=== PATIENT | female | born 1965 | race Caucasian/White ===

== ENCOUNTER → 2016-04-12 | Outpatient (CLI) | payer OTHER ==
[~2016-04-12] MED LIST: DIPH25 PO; DOXY100C PO; HYDR-3965 PO; IBUP-1681 PO; PRED5 PO; TOFA11TA PO; [UNRECOGNIZED DRUG - OTHER] PO
[2016-04-12 14:55] VITALS: BP 149/74
== END | disposition home or self-care (01) ==
LOC: HBOWC 14:06
PROVIDERS: ATTEND Emergency Medicine
DX: I87.2 Venous insufficiency (chronic) (peripheral) (principal); L97.822 Non-pressure chronic ulcer of other part of left lower leg with fat layer exposed; L88 Pyoderma gangrenosum; I10 Essential (primary) hypertension; I89.0 Lymphedema, not elsewhere classified; E66.9 Obesity, unspecified; M72.6 Necrotizing fasciitis; M06.9 Rheumatoid arthritis, unspecified
CPT/HCPCS: 97597

== ENCOUNTER → 2016-04-26 | Outpatient (CLI) | payer OTHER ==
[2016-04-26 14:20] VITALS: BP 152/71
== END | disposition home or self-care (01) ==
LOC: HBOWC 14:27
PROVIDERS: ATTEND Emergency Medicine
DX: L97.822 Non-pressure chronic ulcer of other part of left lower leg with fat layer exposed (principal); I89.0 Lymphedema, not elsewhere classified; I10 Essential (primary) hypertension; M72.6 Necrotizing fasciitis; E66.9 Obesity, unspecified; L88 Pyoderma gangrenosum; M06.9 Rheumatoid arthritis, unspecified; I87.2 Venous insufficiency (chronic) (peripheral); I73.9 Peripheral vascular disease, unspecified
CPT/HCPCS: 11042; 87070; 87205; 88305

== ENCOUNTER → 2016-05-01 | Outpatient (CLI) | payer OTHER ==
[2016-05-01 10:12] VITALS: BP 146/82
== END | disposition home or self-care (01) ==
LOC: HBOWC 09:01
PROVIDERS: ATTEND Emergency Medicine
DX: I87.2 Venous insufficiency (chronic) (peripheral) (principal); L97.822 Non-pressure chronic ulcer of other part of left lower leg with fat layer exposed; M06.9 Rheumatoid arthritis, unspecified; E66.9 Obesity, unspecified; I10 Essential (primary) hypertension; I73.9 Peripheral vascular disease, unspecified; I89.0 Lymphedema, not elsewhere classified
CPT/HCPCS: 87070; 87205; G0463; 87147

== ENCOUNTER → 2016-05-10 | Outpatient (CLI) | payer OTHER ==
[2016-05-10 14:26] VITALS: BP 145/85
== END | disposition home or self-care (01) ==
LOC: HBOWC 14:00
PROVIDERS: ATTEND Emergency Medicine
DX: L97.821 Non-pressure chronic ulcer of other part of left lower leg limited to breakdown of skin (principal); I10 Essential (primary) hypertension; I89.0 Lymphedema, not elsewhere classified; E66.9 Obesity, unspecified; I73.9 Peripheral vascular disease, unspecified; M06.9 Rheumatoid arthritis, unspecified; M72.6 Necrotizing fasciitis; L88 Pyoderma gangrenosum
CPT/HCPCS: 97597

== ENCOUNTER → 2016-05-24 | Outpatient (CLI) | payer OTHER ==
[2016-05-24 14:59] VITALS: BP 152/70
== END | disposition home or self-care (01) ==
LOC: HBOWC 14:19
PROVIDERS: ATTEND Emergency Medicine
DX: I87.2 Venous insufficiency (chronic) (peripheral) (principal); L97.821 Non-pressure chronic ulcer of other part of left lower leg limited to breakdown of skin; L89.899 Pressure ulcer of other site, unspecified stage; I10 Essential (primary) hypertension; E66.9 Obesity, unspecified; I89.0 Lymphedema, not elsewhere classified; M06.9 Rheumatoid arthritis, unspecified; L88 Pyoderma gangrenosum; M72.6 Necrotizing fasciitis
CPT/HCPCS: 97597

== ENCOUNTER → 2016-06-07 | Outpatient (CLI) | payer OTHER ==
[~2016-06-07] MED LIST changes: -DOXY100C PO
[2016-06-07 15:08] VITALS: BP 144/85
== END | disposition home or self-care (01) ==
LOC: HBOWC 14:06
PROVIDERS: ATTEND Emergency Medicine
DX: I87.2 Venous insufficiency (chronic) (peripheral) (principal); L97.822 Non-pressure chronic ulcer of other part of left lower leg with fat layer exposed; I10 Essential (primary) hypertension; I89.0 Lymphedema, not elsewhere classified; E66.9 Obesity, unspecified; I73.9 Peripheral vascular disease, unspecified; M72.6 Necrotizing fasciitis; M06.9 Rheumatoid arthritis, unspecified; L88 Pyoderma gangrenosum
CPT/HCPCS: 97597

== ENCOUNTER → 2016-06-21 | Outpatient (CLI) | payer OTHER ==
[2016-06-21 13:40] VITALS: BP 141/57
== END | disposition home or self-care (01) ==
LOC: HBOWC 13:10
PROVIDERS: ATTEND Emergency Medicine Undersea and Hyperbaric Medicine
DX: I87.2 Venous insufficiency (chronic) (peripheral) (principal); L97.821 Non-pressure chronic ulcer of other part of left lower leg limited to breakdown of skin; I10 Essential (primary) hypertension; I89.0 Lymphedema, not elsewhere classified; L88 Pyoderma gangrenosum; E66.9 Obesity, unspecified; M72.6 Necrotizing fasciitis; M06.80 Other specified rheumatoid arthritis, unspecified site
CPT/HCPCS: 97597

== ENCOUNTER → 2016-07-05 | Outpatient (CLI) | payer OTHER ==
[2016-07-05 14:20] VITALS: BP 139/64
== END | disposition home or self-care (01) ==
LOC: HBOWC 14:11
PROVIDERS: ATTEND Emergency Medicine
DX: I87.2 Venous insufficiency (chronic) (peripheral) (principal); L97.821 Non-pressure chronic ulcer of other part of left lower leg limited to breakdown of skin; L97.521 Non-pressure chronic ulcer of other part of left foot limited to breakdown of skin; I10 Essential (primary) hypertension; I89.0 Lymphedema, not elsewhere classified; M72.6 Necrotizing fasciitis; I73.9 Peripheral vascular disease, unspecified; E66.9 Obesity, unspecified; L88 Pyoderma gangrenosum; M06.9 Rheumatoid arthritis, unspecified
CPT/HCPCS: 97597

== ENCOUNTER → 2016-07-19 | Outpatient (CLI) | payer OTHER ==
[~2016-07-19] MED LIST changes: +ACETIC ACID 0.25% 1000 ML IRRIGATION SOLUTION IRRIG ONE; +CHLORHEXIDINE GLUCONATE 4% 118 ML TOPICAL LIQUID TP ONE; +DOXY100C PO
[2016-07-19 14:38] VITALS: BP 141/61
== END | disposition home or self-care (01) ==
LOC: HBOWC 14:00
PROVIDERS: ATTEND Emergency Medicine
DX: L97.821 Non-pressure chronic ulcer of other part of left lower leg limited to breakdown of skin (principal); L97.521 Non-pressure chronic ulcer of other part of left foot limited to breakdown of skin; I87.2 Venous insufficiency (chronic) (peripheral); I10 Essential (primary) hypertension; I89.0 Lymphedema, not elsewhere classified; E66.9 Obesity, unspecified; L88 Pyoderma gangrenosum; M06.9 Rheumatoid arthritis, unspecified; M72.6 Necrotizing fasciitis
CPT/HCPCS: 87070; 87147; 87205; 97597

== ENCOUNTER → 2016-08-02 | Outpatient (CLI) | payer OTHER ==
[~2016-08-02] MED LIST changes: -ACETIC ACID 0.25% 1000 ML IRRIGATION SOLUTION IRRIG ONE; -CHLORHEXIDINE GLUCONATE 4% 118 ML TOPICAL LIQUID TP ONE
[2016-08-02 14:20] VITALS: BP 145/69
== END | disposition home or self-care (01) ==
LOC: HBOWC 13:56
PROVIDERS: ATTEND Emergency Medicine
DX: L97.822 Non-pressure chronic ulcer of other part of left lower leg with fat layer exposed (principal); I10 Essential (primary) hypertension; I89.0 Lymphedema, not elsewhere classified; M72.6 Necrotizing fasciitis; E66.9 Obesity, unspecified; L88 Pyoderma gangrenosum; M06.9 Rheumatoid arthritis, unspecified; I87.2 Venous insufficiency (chronic) (peripheral)
CPT/HCPCS: 97597

== ENCOUNTER → 2016-08-16 | Outpatient (CLI) | payer OTHER ==
[2016-08-16 15:21] VITALS: BP 146/69
== END | disposition home or self-care (01) ==
LOC: HBOWC 13:51
PROVIDERS: ATTEND Emergency Medicine
DX: I87.2 Venous insufficiency (chronic) (peripheral) (principal); L97.821 Non-pressure chronic ulcer of other part of left lower leg limited to breakdown of skin; I89.0 Lymphedema, not elsewhere classified; M72.6 Necrotizing fasciitis; E66.9 Obesity, unspecified; L88 Pyoderma gangrenosum; M06.9 Rheumatoid arthritis, unspecified; I73.9 Peripheral vascular disease, unspecified
CPT/HCPCS: 97597

== ENCOUNTER → 2016-08-30 | Outpatient (CLI) | payer OTHER ==
[2016-08-30 14:47] VITALS: BP 129/57
== END | disposition home or self-care (01) ==
LOC: HBOWC 13:51
PROVIDERS: ATTEND Emergency Medicine
DX: L97.821 Non-pressure chronic ulcer of other part of left lower leg limited to breakdown of skin (principal); I89.0 Lymphedema, not elsewhere classified; I87.2 Venous insufficiency (chronic) (peripheral); M72.6 Necrotizing fasciitis; M06.9 Rheumatoid arthritis, unspecified; E66.9 Obesity, unspecified; L88 Pyoderma gangrenosum
CPT/HCPCS: 97597

== ENCOUNTER → 2016-09-13 | Outpatient (CLI) | payer OTHER ==
[~2016-09-13] MED LIST changes: +CIPR-278 PO
[2016-09-13 14:25] VITALS: BP 141/72
== END | disposition home or self-care (01) ==
LOC: HBOWC 14:04
PROVIDERS: ATTEND Emergency Medicine
DX: I87.2 Venous insufficiency (chronic) (peripheral) (principal); L97.821 Non-pressure chronic ulcer of other part of left lower leg limited to breakdown of skin; L88 Pyoderma gangrenosum; I89.0 Lymphedema, not elsewhere classified; I73.9 Peripheral vascular disease, unspecified; E66.9 Obesity, unspecified; M06.9 Rheumatoid arthritis, unspecified; M72.6 Necrotizing fasciitis; I10 Essential (primary) hypertension
CPT/HCPCS: 87070; 87205; 97597

== ENCOUNTER → 2016-09-23 | Outpatient (CLI) | payer OTHER ==
[~2016-09-23] MED LIST changes: +ASCO500 PO; +CARV12 PO; +CEPH500 PO; +CHOL200016 PO; +FURO80 PO; +HYDR200T4 PO; +LEFL10TA15 PO; +MULT-71 PO; +PANT40TA25 PO; +PRED20 PO; +VITA100024 PO; +VITA400T9 PO; +ZINC220 PO
[2016-09-23 15:00] VITALS: BP 140/77
== END | disposition home or self-care (01) ==
LOC: HBOWC 14:10
PROVIDERS: ATTEND Emergency Medicine
DX: I87.2 Venous insufficiency (chronic) (peripheral) (principal); L97.822 Non-pressure chronic ulcer of other part of left lower leg with fat layer exposed; I10 Essential (primary) hypertension; I89.0 Lymphedema, not elsewhere classified; M72.6 Necrotizing fasciitis; E66.9 Obesity, unspecified; I73.9 Peripheral vascular disease, unspecified; L88 Pyoderma gangrenosum; M06.9 Rheumatoid arthritis, unspecified
CPT/HCPCS: 97597

== ENCOUNTER → 2016-10-10 | Outpatient (CLI) | payer OTHER ==
[~2016-10-10] MED LIST changes: -ASCO500 PO; -CARV12 PO; -CEPH500 PO; -CHOL200016 PO; -DOXY100C PO; -FURO80 PO; -HYDR200T4 PO; -LEFL10TA15 PO; -MULT-71 PO; -PANT40TA25 PO; -PRED20 PO; -VITA100024 PO; -VITA400T9 PO; -ZINC220 PO
[2016-10-10 10:04] VITALS: BP 147/70
== END | disposition home or self-care (01) ==
LOC: HBOWC 09:49
PROVIDERS: ATTEND Emergency Medicine
DX: I87.2 Venous insufficiency (chronic) (peripheral) (principal); L97.822 Non-pressure chronic ulcer of other part of left lower leg with fat layer exposed; E66.9 Obesity, unspecified; I89.0 Lymphedema, not elsewhere classified; L88 Pyoderma gangrenosum; M06.9 Rheumatoid arthritis, unspecified; I10 Essential (primary) hypertension; I73.9 Peripheral vascular disease, unspecified
CPT/HCPCS: 87070; 87205; 97597

== ENCOUNTER → 2016-10-15 | Outpatient (CLI) | payer OTHER ==
[2016-10-15 09:17] VITALS: BP 138/82
== END | disposition home or self-care (01) ==
LOC: HBOWC 08:39
PROVIDERS: ATTEND Emergency Medicine
DX: I87.2 Venous insufficiency (chronic) (peripheral) (principal); L97.822 Non-pressure chronic ulcer of other part of left lower leg with fat layer exposed; I10 Essential (primary) hypertension; I89.0 Lymphedema, not elsewhere classified; M72.6 Necrotizing fasciitis; E66.9 Obesity, unspecified; I73.9 Peripheral vascular disease, unspecified; L88 Pyoderma gangrenosum; M06.9 Rheumatoid arthritis, unspecified

== ENCOUNTER → 2016-10-25 | Outpatient (CLI) | payer OTHER ==
[2016-10-25 14:26] VITALS: BP 129/59
== END | disposition home or self-care (01) ==
LOC: HBOWC 13:39
PROVIDERS: ATTEND Emergency Medicine
DX: I87.2 Venous insufficiency (chronic) (peripheral) (principal); L97.822 Non-pressure chronic ulcer of other part of left lower leg with fat layer exposed; I89.0 Lymphedema, not elsewhere classified; M72.6 Necrotizing fasciitis; E66.9 Obesity, unspecified; I73.9 Peripheral vascular disease, unspecified; L88 Pyoderma gangrenosum; M06.9 Rheumatoid arthritis, unspecified; I10 Essential (primary) hypertension
CPT/HCPCS: 97597

== ENCOUNTER → 2016-11-08 | Outpatient (CLI) | payer OTHER ==
[2016-11-08 14:22] VITALS: BP 147/71
== END | disposition home or self-care (01) ==
LOC: HBOWC 14:05
PROVIDERS: ATTEND Emergency Medicine
DX: L97.822 Non-pressure chronic ulcer of other part of left lower leg with fat layer exposed (principal); L88 Pyoderma gangrenosum; I87.8 Other specified disorders of veins; I89.0 Lymphedema, not elsewhere classified; I10 Essential (primary) hypertension; E66.9 Obesity, unspecified; I73.9 Peripheral vascular disease, unspecified; M06.9 Rheumatoid arthritis, unspecified
CPT/HCPCS: 87070; 87205; 97597

== ENCOUNTER → 2016-11-19 | Outpatient (CLI) | payer OTHER ==
[2016-11-19 15:04] VITALS: BP 147/73
== END | disposition home or self-care (01) ==
LOC: HBOWC 14:11
PROVIDERS: ATTEND Emergency Medicine Undersea and Hyperbaric Medicine
DX: I87.2 Venous insufficiency (chronic) (peripheral) (principal); L97.821 Non-pressure chronic ulcer of other part of left lower leg limited to breakdown of skin; B96.5 Pseudomonas (aeruginosa) (mallei) (pseudomallei) as the cause of diseases classified elsewhere; I89.0 Lymphedema, not elsewhere classified; E66.9 Obesity, unspecified; L88 Pyoderma gangrenosum; M72.6 Necrotizing fasciitis; M35.1 Other overlap syndromes; M06.9 Rheumatoid arthritis, unspecified
CPT/HCPCS: 97597

== ENCOUNTER → 2016-11-29 | Outpatient (CLI) | payer OTHER ==
[~2016-11-29] MED LIST changes: -IBUP-1681 PO; +IBUP-2354 PO
[2016-11-29 08:27] VITALS: BP 157/77
== END | disposition home or self-care (01) ==
LOC: HBOWC 07:39
PROVIDERS: ATTEND Emergency Medicine
DX: S81.802D Unspecified open wound, left lower leg, subsequent encounter (principal); I87.2 Venous insufficiency (chronic) (peripheral); I10 Essential (primary) hypertension; I89.0 Lymphedema, not elsewhere classified; E66.9 Obesity, unspecified; L88 Pyoderma gangrenosum; M72.6 Necrotizing fasciitis; M06.9 Rheumatoid arthritis, unspecified; B96.5 Pseudomonas (aeruginosa) (mallei) (pseudomallei) as the cause of diseases classified elsewhere; I73.9 Peripheral vascular disease, unspecified; Z68.1 Body mass index [BMI] 19.9 or less, adult; X58.XXXD Exposure to other specified factors, subsequent encounter
CPT/HCPCS: 11042

== ENCOUNTER → 2016-12-06 | Outpatient (CLI) | payer OTHER ==
[~2016-12-06] MED LIST changes: -CIPR-278 PO
[2016-12-06 09:39] VITALS: BP 148/78
== END | disposition home or self-care (01) ==
LOC: HBOWC 08:50
PROVIDERS: ATTEND Emergency Medicine
DX: S81.802D Unspecified open wound, left lower leg, subsequent encounter (principal); L88 Pyoderma gangrenosum; I87.2 Venous insufficiency (chronic) (peripheral); E66.9 Obesity, unspecified; I89.0 Lymphedema, not elsewhere classified; M72.6 Necrotizing fasciitis; M06.9 Rheumatoid arthritis, unspecified; I10 Essential (primary) hypertension; X58.XXXD Exposure to other specified factors, subsequent encounter
CPT/HCPCS: 11042

== ENCOUNTER → 2016-12-13 | Outpatient (CLI) | payer OTHER ==
[~2016-12-13] MED LIST changes: +CIP250 PO; +CIPR-278 PO; +CIPR500S4 PO; +LIDOCAINE HCL 2% 5 ML JELLY TP ONE
[2016-12-13 10:00] VITALS: BP 149/77
== END | disposition home or self-care (01) ==
LOC: HBOWC 10:12
PROVIDERS: ATTEND Emergency Medicine
DX: S81.802D Unspecified open wound, left lower leg, subsequent encounter (principal); I87.2 Venous insufficiency (chronic) (peripheral); I10 Essential (primary) hypertension; E66.9 Obesity, unspecified; I89.0 Lymphedema, not elsewhere classified; M06.9 Rheumatoid arthritis, unspecified; I73.9 Peripheral vascular disease, unspecified; B96.5 Pseudomonas (aeruginosa) (mallei) (pseudomallei) as the cause of diseases classified elsewhere; L88 Pyoderma gangrenosum; Z68.1 Body mass index [BMI] 19.9 or less, adult; X58.XXXD Exposure to other specified factors, subsequent encounter
CPT/HCPCS: 11042

== ENCOUNTER → 2016-12-27 | Outpatient (CLI) | payer OTHER ==
[~2016-12-27] MED LIST changes: -LIDOCAINE HCL 2% 5 ML JELLY TP ONE
[2016-12-27 14:30] VITALS: BP 173/73
== END | disposition home or self-care (01) ==
LOC: HBOWC 14:07
PROVIDERS: ATTEND Nurse Practitioner Adult Health
DX: S81.802D Unspecified open wound, left lower leg, subsequent encounter (principal); I87.2 Venous insufficiency (chronic) (peripheral); I10 Essential (primary) hypertension; E66.9 Obesity, unspecified; Z68.1 Body mass index [BMI] 19.9 or less, adult; I89.0 Lymphedema, not elsewhere classified; I73.9 Peripheral vascular disease, unspecified; L88 Pyoderma gangrenosum; M06.9 Rheumatoid arthritis, unspecified; X58.XXXD Exposure to other specified factors, subsequent encounter

== ENCOUNTER → 2017-01-07 | Outpatient (CLI) | payer OTHER ==
[2017-01-07 15:05] VITALS: BP 144/74
== END | disposition home or self-care (01) ==
LOC: HBOWC 14:04
PROVIDERS: ATTEND Emergency Medicine
DX: S81.802D Unspecified open wound, left lower leg, subsequent encounter (principal); E66.9 Obesity, unspecified; I87.2 Venous insufficiency (chronic) (peripheral); L73.2 Hidradenitis suppurativa; I10 Essential (primary) hypertension; I89.0 Lymphedema, not elsewhere classified; I73.9 Peripheral vascular disease, unspecified; M06.9 Rheumatoid arthritis, unspecified; M72.6 Necrotizing fasciitis; L88 Pyoderma gangrenosum; Z68.1 Body mass index [BMI] 19.9 or less, adult; X58.XXXD Exposure to other specified factors, subsequent encounter
CPT/HCPCS: 11042

== ENCOUNTER → 2017-01-20 | Outpatient (CLI) | payer OTHER ==
[2017-01-20 08:32] VITALS: BP 155/81
== END | disposition home or self-care (01) ==
LOC: HBOWC 07:59
PROVIDERS: ATTEND Nurse Practitioner Adult Health
DX: S81.802D Unspecified open wound, left lower leg, subsequent encounter (principal); I87.2 Venous insufficiency (chronic) (peripheral); I89.0 Lymphedema, not elsewhere classified; I73.9 Peripheral vascular disease, unspecified; L88 Pyoderma gangrenosum; L73.2 Hidradenitis suppurativa; M06.9 Rheumatoid arthritis, unspecified; I10 Essential (primary) hypertension; E66.9 Obesity, unspecified; Z68.1 Body mass index [BMI] 19.9 or less, adult

== ENCOUNTER → 2017-02-03 | Outpatient (CLI) | payer OTHER ==
[~2017-02-03] MED LIST changes: +LIDOCAINE HCL 4% 50 ML SOLUTION TP ONE
[2017-02-03 11:10] VITALS: BP 156/78
== END | disposition home or self-care (01) ==
LOC: HBOWC 10:33
PROVIDERS: ATTEND Surgery Plastic and Reconstructive Surgery
DX: S81.802D Unspecified open wound, left lower leg, subsequent encounter (principal); L73.2 Hidradenitis suppurativa; L88 Pyoderma gangrenosum; I87.2 Venous insufficiency (chronic) (peripheral); I89.0 Lymphedema, not elsewhere classified; I10 Essential (primary) hypertension; I73.9 Peripheral vascular disease, unspecified; M06.9 Rheumatoid arthritis, unspecified; E66.9 Obesity, unspecified; Z68.1 Body mass index [BMI] 19.9 or less, adult; X58.XXXD Exposure to other specified factors, subsequent encounter

== ENCOUNTER → 2017-02-10 | Outpatient (CLI) | payer OTHER ==
[~2017-02-10] MED LIST changes: -CIPR-278 PO; -DIPH25 PO; +LIDOCAINE HCL 2% 5 ML JELLY TP ONE; -LIDOCAINE HCL 4% 50 ML SOLUTION TP ONE
[2017-02-10 08:33] VITALS: BP 152/73
== END | disposition home or self-care (01) ==
LOC: HBOWC 07:39
PROVIDERS: ATTEND Surgery Plastic and Reconstructive Surgery
DX: S81.802D Unspecified open wound, left lower leg, subsequent encounter (principal); I87.2 Venous insufficiency (chronic) (peripheral); E66.9 Obesity, unspecified; I10 Essential (primary) hypertension; L73.2 Hidradenitis suppurativa; I89.0 Lymphedema, not elsewhere classified; I73.9 Peripheral vascular disease, unspecified; L88 Pyoderma gangrenosum; M06.9 Rheumatoid arthritis, unspecified; M72.6 Necrotizing fasciitis; Z68.1 Body mass index [BMI] 19.9 or less, adult; X58.XXXD Exposure to other specified factors, subsequent encounter
CPT/HCPCS: 11043

== ENCOUNTER → 2017-02-17 | Outpatient (CLI) | payer OTHER ==
[~2017-02-17] MED LIST changes: -LIDOCAINE HCL 2% 5 ML JELLY TP ONE
[2017-02-17 08:11] VITALS: BP 144/74
== END | disposition home or self-care (01) ==
LOC: HBOWC 07:32
PROVIDERS: ATTEND Surgery Plastic and Reconstructive Surgery
DX: S81.802D Unspecified open wound, left lower leg, subsequent encounter (principal); L73.2 Hidradenitis suppurativa; I87.2 Venous insufficiency (chronic) (peripheral); I10 Essential (primary) hypertension; I89.0 Lymphedema, not elsewhere classified; M72.6 Necrotizing fasciitis; I73.9 Peripheral vascular disease, unspecified; M06.9 Rheumatoid arthritis, unspecified; E66.9 Obesity, unspecified; Z68.1 Body mass index [BMI] 19.9 or less, adult; X58.XXXD Exposure to other specified factors, subsequent encounter
CPT/HCPCS: 11042; 11043; 87070; 87205

== ENCOUNTER → 2017-02-24 | Outpatient (CLI) | payer OTHER ==
[~2017-02-24] MED LIST changes: +LIDOCAINE HCL 4% 50 ML SOLUTION ONE
[2017-02-24 08:18] VITALS: BP 157/68
== END | disposition home or self-care (01) ==
LOC: HBOWC 07:29
PROVIDERS: ATTEND Surgery Plastic and Reconstructive Surgery
DX: S81.802D Unspecified open wound, left lower leg, subsequent encounter (principal); I87.2 Venous insufficiency (chronic) (peripheral); E66.9 Obesity, unspecified; I89.0 Lymphedema, not elsewhere classified; M72.6 Necrotizing fasciitis; I73.9 Peripheral vascular disease, unspecified; L88 Pyoderma gangrenosum; M06.9 Rheumatoid arthritis, unspecified; I10 Essential (primary) hypertension; Z68.1 Body mass index [BMI] 19.9 or less, adult; X58.XXXD Exposure to other specified factors, subsequent encounter

== ENCOUNTER → 2017-03-03 | Outpatient (CLI) | payer OTHER ==
[~2017-03-03] MED LIST changes: -CIPR500S4 PO; -LIDOCAINE HCL 4% 50 ML SOLUTION ONE; +LIDOCAINE HCL 4% 50 ML SOLUTION TP ONE
[2017-03-03 08:21] VITALS: BP 141/67
== END | disposition home or self-care (01) ==
LOC: HBOWC 07:31
PROVIDERS: ATTEND Surgery Plastic and Reconstructive Surgery
DX: S81.802D Unspecified open wound, left lower leg, subsequent encounter (principal); I87.2 Venous insufficiency (chronic) (peripheral); E66.9 Obesity, unspecified; I10 Essential (primary) hypertension; I89.0 Lymphedema, not elsewhere classified; M72.6 Necrotizing fasciitis; I73.9 Peripheral vascular disease, unspecified; M06.9 Rheumatoid arthritis, unspecified; Z68.1 Body mass index [BMI] 19.9 or less, adult; X58.XXXD Exposure to other specified factors, subsequent encounter
CPT/HCPCS: 11043

== ENCOUNTER → 2017-03-24 | Outpatient (CLI) | payer OTHER ==
[~2017-03-24] MED LIST changes: -CIP250 PO; -LIDOCAINE HCL 4% 50 ML SOLUTION TP ONE
[2017-03-24 08:00] VITALS: BP 145/65
== END | disposition home or self-care (01) ==
LOC: HBOWC 07:39
PROVIDERS: ATTEND Surgery Plastic and Reconstructive Surgery
DX: S81.802D Unspecified open wound, left lower leg, subsequent encounter (principal); I87.2 Venous insufficiency (chronic) (peripheral); E66.9 Obesity, unspecified; I10 Essential (primary) hypertension; I89.0 Lymphedema, not elsewhere classified; M72.6 Necrotizing fasciitis; I73.9 Peripheral vascular disease, unspecified; M06.9 Rheumatoid arthritis, unspecified; L88 Pyoderma gangrenosum; Z68.1 Body mass index [BMI] 19.9 or less, adult; X58.XXXD Exposure to other specified factors, subsequent encounter
CPT/HCPCS: 11043

== ENCOUNTER → 2017-04-14 | Outpatient (CLI) | payer OTHER ==
[2017-04-14 08:00] VITALS: BP 162/73
== END | disposition home or self-care (01) ==
LOC: HBOWC 07:43
PROVIDERS: ATTEND Surgery Plastic and Reconstructive Surgery
DX: S81.802D Unspecified open wound, left lower leg, subsequent encounter (principal); I10 Essential (primary) hypertension; I89.0 Lymphedema, not elsewhere classified; E66.9 Obesity, unspecified; M06.9 Rheumatoid arthritis, unspecified; I87.2 Venous insufficiency (chronic) (peripheral); I73.9 Peripheral vascular disease, unspecified; Z68.1 Body mass index [BMI] 19.9 or less, adult; X58.XXXD Exposure to other specified factors, subsequent encounter

== ENCOUNTER 2021-04-03 05:17 | Day surgery (SDC) | payer OTHER ==
[2021-04-02 13:00] LABS: COVID AG,FIA SOURCE NASOPHARYNGEAL
[~2021-04-03] VITALS: Ht 162.6 cm; Wt 100.0 kg
[~2021-04-03 05:17] MED LIST changes: -HYDR-3965 PO; -IBUP-2354 PO; +PRED-409 PO; -PRED5 PO; +RINGERS SOLUTION,LACTATED 1,000 ML IV ONE; +RINGERS SOLUTION,LACTATED 500 ML IV ONE
[2021-04-03] MEDS ORDERED: TETRACAINE HCL/PF 0.5% 4 ML OPHTHALMIC SOLUTION OD SCH (05:30)
[2021-04-03] MEDS ORDERED: RINGERS SOLUTION,LACTATED 500 ML IV ONE (05:31)
[2021-04-03] MEDS ORDERED: MOXIFLOXACIN HCL 0.5% 3 ML OPHTHALMIC SOLUTION ONE (05:36)
[2021-04-03] MEDS ORDERED: KETOROLAC TROMETHAMINE 0.5% 5 ML OPHTHALMIC SOLUTION ONE (05:36)
[2021-04-03] MEDS ORDERED: CYCLOPENTOLATE HCL 1% 2 ML OPHTHALMIC SOLUTION ONE (05:37)
[2021-04-03] MEDS ORDERED: PHENYLEPHRINE HCL 2.5% 2 ML OPHTHALMIC SOLUTION ONE (05:37)
[2021-04-03] MEDS ORDERED: TROPICAMIDE 1% 2 ML OPHTHALMIC SOLUTION ONE (05:37)
[2021-04-03] MEDS ORDERED: TETRACAINE HCL/PF 0.5% 4 ML OPHTHALMIC SOLUTION ONE (05:38)
[2021-04-03] MEDS: CYCLOPENTOLATE HCL 1% 2 ML OPHTHALMIC SOLUTION OD SCH ×3 (05:45→06:06)
[2021-04-03] MEDS: TROPICAMIDE 1% 2 ML OPHTHALMIC SOLUTION OD SCH ×3 (05:45→06:06)
[2021-04-03] MEDS: PHENYLEPHRINE HCL 2.5% 2 ML OPHTHALMIC SOLUTION OD SCH ×3 (05:45→06:06)
[2021-04-03] MEDS: MOXIFLOXACIN HCL 0.5% 3 ML OPHTHALMIC SOLUTION OD SCH ×3 (05:45→06:06)
[2021-04-03] MEDS: KETOROLAC TROMETHAMINE 0.5% 5 ML OPHTHALMIC SOLUTION OD SCH ×3 (05:45→06:06)
[2021-04-03] MEDS ORDERED: MIDAZOLAM HCL 2 MG/2 ML VIAL IVP ONE (12:00)
[2021-04-03] MEDS ORDERED: FentaNYL CITRATE PF 100 MCG/2 ML VIAL IVP ONE (12:00)
[2021-04-03] MEDS ORDERED: NEOMYCIN/POLYMYXIN B/DEXAMETH 3.5 GM OPHTHALMIC OINTMENT ONE (19:26)
[2021-04-03] MEDS ORDERED: BALANCED SALT 15 ML OPHTHALMIC IRRIG.SOLN ONE (19:26)
[2021-04-03] MEDS ORDERED: HYALURONATE SOD 8.5MG/0.85ML 10 MG/ML SYRINGE IO ONE (19:26)
[2021-04-03] MEDS ORDERED: EPINEPHrine 1:1,000 [1 MG/ML] AMP ONE (19:26)
[2021-04-03] MEDS ORDERED: POVIDONE-IODINE 10% 15 ML SOLUTION UD ONE (19:26)
== END 2021-04-03 07:30 | disposition home or self-care (01) ==
LOC: SURGERY 05:17
PROVIDERS: ATTEND Ophthalmology
DX: H25.11 Age-related nuclear cataract, right eye (principal); Z88.0 Allergy status to penicillin; Z88.8 Allergy status to other drugs, medicaments and biological substances; Z88.2 Allergy status to sulfonamides; Z79.899 Other long term (current) drug therapy; Z98.890 Other specified postprocedural states; M06.9 Rheumatoid arthritis, unspecified
CPT/HCPCS: 66984; 87426; 93005; C9803; J0171; J2250; J3010; J7120; V2632

== ENCOUNTER 2021-05-01 05:57 | Day surgery (SDC) | payer OTHER ==
[2021-04-30 11:57] LABS: COVID AG,FIA SOURCE NASAL SWAB
[~2021-05-01] VITALS: Ht 170.2 cm; Wt 97.3 kg
[~2021-05-01 05:57] MED LIST changes: +CYCLOPENTOLATE HCL 1% 2 ML OPHTHALMIC SOLUTION ONE; +KETOROLAC TROMETHAMINE 0.5% 5 ML OPHTHALMIC SOLUTION ONE; +MOXIFLOXACIN HCL 0.5% 3 ML OPHTHALMIC SOLUTION ONE; +PHENYLEPHRINE HCL 2.5% 2 ML OPHTHALMIC SOLUTION ONE; -PRED-409 PO; +PRED-549 PO; -RINGERS SOLUTION,LACTATED 1,000 ML IV ONE; -RINGERS SOLUTION,LACTATED 500 ML IV ONE; +TETRACAINE HCL/PF 0.5% 4 ML OPHTHALMIC SOLUTION ONE; +TROPICAMIDE 1% 2 ML OPHTHALMIC SOLUTION ONE
[2021-05-01] MEDS ORDERED: RINGERS SOLUTION,LACTATED 500 ML IV ONE ×2 (05:58→06:00)
[2021-05-01] MEDS: CYCLOPENTOLATE HCL 1% 2 ML OPHTHALMIC SOLUTION OS SCH ×3 (06:33→07:04)
[2021-05-01] MEDS: KETOROLAC TROMETHAMINE 0.5% 5 ML OPHTHALMIC SOLUTION OS SCH ×3 (06:33→07:05)
[2021-05-01] MEDS: TROPICAMIDE 1% 2 ML OPHTHALMIC SOLUTION OS SCH ×3 (06:33→07:04)
[2021-05-01] MEDS: TETRACAINE HCL/PF 0.5% 4 ML OPHTHALMIC SOLUTION OS SCH ×3 (06:34→07:05)
[2021-05-01] MEDS: PHENYLEPHRINE HCL 2.5% 2 ML OPHTHALMIC SOLUTION OS SCH ×3 (06:34→07:04)
[2021-05-01] MEDS ORDERED: OFLOXACIN 0.3% 5 ML OPHTHALMIC SOLUTION ONE (06:44)
[2021-05-01] MEDS: OFLOXACIN 0.3% 5 ML OPHTHALMIC SOLUTION OS SCH ×3 (06:45→07:04)
[2021-05-01] MEDS ORDERED: LIDOCAINE/PF 1% 2 ML VIAL ONE (06:46)
[2021-05-01] MEDS ORDERED: POVIDONE-IODINE 10% 15 ML SOLUTION UD ONE (06:46)
[2021-05-01] MEDS ORDERED: TETRACAINE HCL/PF 0.5% 4 ML OPHTHALMIC SOLUTION ONE (06:46)
[2021-05-01] MEDS ORDERED: EPINEPHrine 1:1,000 [1 MG/ML] AMP ONE (06:52)
[2021-05-01] MEDS ORDERED: EPINEPHrine 1:1,000 [1 MG/ML] AMP SQ ONE ×2 (07:15→07:50)
[2021-05-01] MEDS ORDERED: PrednisoLONE ACETATE 1% 5 ML OPHTHALMIC SUSPENSION ONE (07:40)
[2021-05-01] MEDS ORDERED: BALANCED SALT 15 ML OPHTHALMIC IRRIG.SOLN OS ONE ×2 (07:50→08:15)
[2021-05-01] MEDS ORDERED: NEOMYCIN/POLYMYXIN B/DEXAMETH 3.5 GM OPHTHALMIC OINTMENT ONE (08:03)
[2021-05-01] MEDS ORDERED: LIDOCAINE 1% 10 ML VIAL ID ONE (08:22)
[2021-05-01] MEDS ORDERED: PrednisoLONE ACETATE 1% 5 ML OPHTHALMIC SUSPENSION OS ONE (08:23)
[2021-05-01] MEDS ORDERED: DEXAMETHASONE 0.1% 5 ML OPHTHALMIC SOLUTION OS ONE (08:23)
[2021-05-01] MEDS ORDERED: MIDAZOLAM HCL 2 MG/2 ML VIAL IVP ONE (12:00)
[2021-05-01] MEDS ORDERED: FentaNYL CITRATE PF 100 MCG/2 ML VIAL IVP ONE (12:00)
== END 2021-05-01 09:20 | disposition home or self-care (01) ==
LOC: SURGERY 05:57
PROVIDERS: ATTEND Ophthalmology
DX: H25.12 Age-related nuclear cataract, left eye (principal); M06.9 Rheumatoid arthritis, unspecified; Z88.0 Allergy status to penicillin; Z88.8 Allergy status to other drugs, medicaments and biological substances; Z88.1 Allergy status to other antibiotic agents; Z79.899 Other long term (current) drug therapy; Z79.01 Long term (current) use of anticoagulants; Z98.84 Bariatric surgery status; Z98.890 Other specified postprocedural states
CPT/HCPCS: 66984; 87426; 93005; C9803; J0171; J2250; J3010; J3490 ×2; J7120; V2632